=== PATIENT | male | born 1980 | race American Indian/Alaskan Native ===

== ENCOUNTER 2016-08-14 07:34 | Emergency (ER) | payer BC ==
[2016-08-14] MEDS ORDERED: Ondansetron 4 MG/2 ML SDV IVPUSH ONE (07:47)
[2016-08-14] MEDS ORDERED: Sodium Chloride 0.9% 1,000 ML IV ONE (07:47)
[2016-08-14] MEDS ORDERED: Ketorolac 30 MG/ML SDV IVPUSH ONE (07:47)
[2016-08-14] MEDS ORDERED: Tamsulosin 0.4 MG Cap.ER PO ONE (07:48)
--- NOTE | 2016-08-14 07:50 | EDM.PDOC ---
ED HPI GENERAL MEDICAL PROBLEM - General Chief Complaint: Flank Pain Stated Complaint: LOWER BACK PAIN Time Seen by Provider: 08/14/16 07:46 - History of Present Illness INITIAL COMMENTS - FREE TEXT/NARRATIVE: HISTORY AND PHYSICAL: History of present illness: Patient 36-year-old male presents concern of acute left flank pain this spring with associated nausea vomiting started yesterday had a history of urolithiasis prior he denies fever chills trauma or other concern Review of systems: As per history of present illness and below otherwise all systems reviewed and negative. Past medical history: As per history of present illness and as reviewed below otherwise noncontributory. Surgical history: As per history of present illness and as reviewed below otherwise noncontributory. Social history: No reported history of drug or alcohol abuse. Family history: As per history of present illness and as reviewed below otherwise noncontributory. Physical exam: HEENT: Atraumatic, normocephalic, pupils reactive, negative for conjunctival pallor or scleral icterus, mucous membranes moist, throat clear, neck supple, nontender, trachea midline. Lungs: Clear to auscultation, breath sounds equal bilaterally, chest nontender. Heart: S1S2, regular, negative for clicks, rubs, or JVD. Abdomen: Soft, nondistended, nontender. Negative for masses or hepatosplenomegaly. Left-sided costovertebral tenderness. Pelvis: Stable nontender. Genitourinary: Deferred. Rectal: Deferred. Extremities: Atraumatic, negative for cords or calf pain. Neurovascular unremarkable. Neuro: Awake, alert, oriented. Cranial nerves II through XII unremarkable. Cerebellum unremarkable. Motor and sensory unremarkable throughout. Exam nonfocal. Diagnostics: CBC CMP UA urine culture CT abdomen and pelvis Therapeutics: Normal saline 1 L bolus Toradol 30 mg IV Zofran 4 mg IV Flomax 0.4 mg by mouth Impression: #1 acute left flank pain #2 history of urolithiasis Definitive disposition and diagnosis as appropriate pending reevaluation and review of above. left flank Pain Score (Numeric/FACES): 6 - Related Data Allergies Allergy/AdvReac Type Severity Reaction Status Date / Time No Known Allergies Allergy Verified 08/14/16 07:43 Home Meds: Home Meds . [No Known Home Meds] 08/14/16 [History] Past Medical History Psychiatric History: Reports: PTSD - Past Surgical History Musculoskeletal Surgical History: Reports: Other (See Below) Other Musculoskeletal Surgeries/Procedures:: right knee surgery Social & Family History - Family History Family Medical History: Noncontributory - Tobacco Use Smoking Status *Q: Current Every Day Smoker Years of Tobacco use: 2 Packs/Tins Daily: 0.2 - Caffeine Use Caffeine Use: Reports: Coffee, Energy Drinks, Soda, Tea - Recreational Drug Use Recreational Drug Use: No ED ROS GENERAL - Review of Systems Review Of Systems: ROS reveals no pertinent complaints other than HPI. ED EXAM, GENERAL - Physical Exam Exam: See Below (See dictation) Course - Vital Signs Last Recorded V/S: Last Vital Signs Temp 35.7 C 08/14/16 07:43 Pulse 95 08/14/16 07:43 Resp 18 08/14/16 07:43 BP 140/95 H 08/14/16 07:43 Pulse Ox 98 08/14/16 07:43 - Orders/Labs/Meds Orders: Active Orders 24 hr Category Date Time Status Abdomen Pelvis wo Cont [CT] Stat Exams 08/14/16 07:47 Taken CULTURE URINE [RM] Stat Lab 08/14/16 07:45 Received Sodium Chloride 0.9% [Normal Saline] 1,000 ml Med 08/14/16 07:47 Active IV STAT Medication Orders Sodium Chloride (Normal Saline) 1,000 mls @ 999 mls/hr IV STAT ONE Stop: 08/14/16 08:47 Last Admin: 08/14/16 08:28 Dose: 999 mls/hr Labs: Laboratory Tests 08/14/16 08/14/16 08/14/16 Range/Units 07:45 08:06 08:06 WBC 9.10 (4.0-11.0) K/uL RBC 4.93 (4.50-5.90) M/uL Hgb 14.7 (13.0-17.0) g/dL Hct 41.8 (38.0-50.0) % MCV 84.8 (80.0-98.0) fL MCH 29.8 (27.0-32.0) pg MCHC 35.2 (31.0-37.0) g/dL RDW Std Deviation 42.1 (28.0-62.0) fl RDW Coeff of Paul 14 (11.0-15.0) % Plt Count 250 (150-400) K/uL MPV 10.70 (7.40-12.00) fL Neut % (Auto) 55.1 (48.0-80.0) % Lymph % (Auto) 32.2 (16.0-40.0) % Nelson % (Auto) 9.1 (0.0-15.0) % Eos % (Auto) 2.9 (0.0-7.0) % Baso % (Auto) 0.7 (0.0-1.5) % Neut # (Auto) 5.0 (1.4-5.7) K/uL Lymph # (Auto) 2.9 H (0.6-2.4) K/uL Nelson # (Auto) 0.8 (0.0-0.8) K/uL Eos # (Auto) 0.3 (0.0-0.7) K/uL Baso # (Auto) 0.1 (0.0-0.1) K/uL Nucleated RBC % 0.0 /100WBC Nucleated RBCs # 0 K/uL Sodium 141 (136-146) mmol/L Potassium 3.8 (3.5-5.1) mmol/L Chloride 114 H (98-110) mmol/L Carbon Dioxide 18 L (21-31) mmol/L BUN 24 H (6.0-23.0) mg/dL Creatinine 1.2 (0.6-1.5) mg/dL Est Cr Clr Drug Dosing 83.47 mL/min Estimated GFR (MDRD) > 60.0 ml/min Glucose 83 (60-110) mg/dL Calcium 9.3 (8.8-10.8) mg/dL Total Bilirubin 1.4 (0.1-1.5) mg/dL AST 35 (5-40) IU/L ALT 42 (8-54) IU/L Alkaline Phosphatase 127 (40-150) Total Protein 7.4 (6.0-8.0) g/dL Albumin 4.2 (3.5-5.0) g/dL Globulin 3.2 (2.0-3.5) g/dL Albumin/Globulin Ratio 1.3 (1.3-2.8) Urine Color YELLOW Urine Appearance CLEAR Urine pH 6.0 (5.0-8.0) Ur Specific [place] >= 1.030 (1.001-1.035) Urine Protein NEGATIVE (NEGATIVE) mg/dL Urine Glucose (UA) NEGATIVE (NEGATIVE) mg/dL Urine Ketones NEGATIVE (NEGATIVE) mg/dL Urine Occult Blood LARGE H (NEGATIVE) Urine Nitrite NEGATIVE (NEGATIVE) Urine Bilirubin NEGATIVE (NEGATIVE) Urine Urobilinogen 0.2 (<2.0) EU/dL Ur Leukocyte Esterase NEGATIVE (NEGATIVE) Urine RBC 25-30 (0-2/HPF) Urine WBC 0-1 (0-5/HPF) Ur Epithelial Cells RARE (NONE-FEW) Urine Bacteria FEW (NEGATIVE) Meds: Medications Generic Name Dose Route Start Last Admin Trade Name Freq PRN Reason Stop Dose Admin Sodium Chloride 1,000 mls @ 999 mls/hr 08/14/16 07:47 08/14/16 08:28 Normal Saline IV 08/14/16 08:47 999 mls/hr STAT ONE Administration Discontinued Medications Generic Name Dose Route Start Last Admin Trade Name Freq PRN Reason Stop Dose Admin Ketorolac Tromethamine 30 mg 08/14/16 07:47 08/14/16 08:08 Toradol IVPUSH 08/14/16 07:48 30 mg ONETIME ONE Administration Ondansetron HCl 4 mg 08/14/16 07:47 08/14/16 08:08 Zofran IVPUSH 08/14/16 07:48 4 mg ONETIME ONE Administration Tamsulosin HCl 0.4 mg 08/14/16 07:48 08/14/16 08:08 Flomax PO 08/14/16 07:49 0.4 mg ONETIME ONE Administration Departure - Departure Time of Disposition: 08:46 Disposition: Home, Self-Care 01 Condition: Good Clinical Impression: Ureterolithiasis - Discharge Information Forms: ED Department Discharge Additional Instructions: The following information is given to patients seen in the emergency department who are being discharged to home. This information is to outline your options for follow-up care. We provide all patients seen in our emergency department with a follow-up referral. The need for follow-up, as well as the timing and circumstances, are variable depending upon the specifics of your emergency department visit. If you don't have a primary care physician on staff, we will provide you with a referral. We always advise you to contact your personal physician following an emergency department visit to inform them of the circumstance of the visit and for follow-up with them and/or the need for any referrals to a consulting specialist. The emergency department will also refer you to a specialist when appropriate. This referral assures that you have the opportunity for followup care with a specialist. All of these measure are taken in an effort to provide you with optimal care, which includes your followup. Under all circumstances we always encourage you to contact your private physician who remains a resource for coordinating your care. When calling for followup care, please make the office aware that this follow-up is from your recent emergency room visit. If for any reason you are refused follow-up, please contact the [facility] emergency department at and asked to speak to the emergency department charge nurse. [facility] Specialty Care - Urology [address] [place] [id number] Hydrocodone Flomax Zofran as prescribed follow-up urology call to schedule appointment and return as needed as discussed - My Orders Last 24 Hours: My Active Orders 08/14/16 07:45 CULTURE URINE [RM] Stat 08/14/16 07:47 Abdomen Pelvis wo Cont [CT] Stat Sodium Chloride 0.9% [Normal Saline] 1,000 ml IV STAT - Assessment/Plan Last 24 Hours: My Active Orders 08/14/16 07:45 CULTURE URINE [RM] Stat 08/14/16 07:47 Abdomen Pelvis wo Cont [CT] Stat Sodium Chloride 0.9% [Normal Saline] 1,000 ml IV STAT
[2016-08-14 08:38] LABS: CHLORIDE,CL 114 mmol/L (98-110); SODIUM,NA 141 mmol/L (136-146)
[2016-08-14 09:08] VITALS: BP 119/78
--- NOTE | 2016-08-16 12:54 | CT ---
EXAM DATE: 08/14/16 PATIENT'S AGE: 36 Patient: VIJAY QURESHI Facility: [place], [place] Site . Site : 1980 Study: CT Abdomen/Pelvis [id number]/8/2017 8:31:30 AM Ordering Physician: Gunnar Alexander Final Report: INDICATION: LEFT FLANK PAIN, HX OF KIDNEY STONES Indication: Left flank pain. Technique: CT of the abdomen and pelvis without contrast. Coronal/ sagittal reconstructed images. Comparison: None. Findings: Lung bases: There is no pleural or pericardial effusion. The heart size is normal. Lung bases demonstrate no acute airspace disease. There is no basilar pneumothorax. Abdomen/pelvis: No solid hepatic mass. Hepatic morphology is normal. No inflammatory changes of the gallbladder. Spleen size is normal. No pancreatic mass or pancreatic duct dilation. No glandular atrophy. There is no adrenal mass. There is a stone present at the left UVJ, which measures 2-3 millimeters. This is seen on series 201, image 120. There is no significant hydronephrosis or hydroureter. Questionable mild fat stranding adjacent to the left proximal ureter. No additional urolithiasis identified. A 2 millimeter stone in the right kidney on image 49, series 201. Prostate and seminal vesicles are within normal limits. There is no wall thickening within the small bowel or colon. There is no perienteric edema. There is no small bowel or colonic obstruction. Normal caliber appendix. This is seen in image 99. No abdominal aortic aneurysm. No abdominal or pelvic lymphadenopathy by size criteria. The bone windows demonstrate a small sclerotic lesion in the left proximal femur. This measures 6 millimeters in dimension. A benign bone island is favored. Impression: 1. 2-3 millimeter stone at the left UVJ. No significant hydronephrosis or hydroureter. 2. No additional acute findings are demonstrated. Dictated by Todd Duke MD @ 08/14/2016 8:38:02 AM Dictated by: Todd Duke MD @ 08/14/2016 08:38:10 (Electronic Signature) Report Signed by Proxy. ANMOL
== END 2016-08-14 09:17 | disposition home or self-care (01) ==
LOC: MW.ED 07:34
DX: N20.2 Calculus of kidney with calculus of ureter (principal); F17.210 Nicotine dependence, cigarettes, uncomplicated
CPT/HCPCS: 36415; 74176; 80053; 81001; 85025; 87086; 99282; A9270; J1885; J2405; J7040

== ENCOUNTER 2017-04-23 03:48 | Emergency (ER) | payer BC ==
[2017-04-23] MEDS ORDERED: HYDROmorphone 2 MG/ML SDV ONE (03:59)
[2017-04-23] MEDS ORDERED: Sodium Chloride 0.9% 1,000 ML IV ONE (03:59)
[2017-04-23] MEDS ORDERED: Ondansetron 4 MG/2 ML SDV IVPUSH ONE (04:00)
[2017-04-23] MEDS ORDERED: Tamsulosin 0.4 MG Cap.ER PO ONE (04:00)
[2017-04-23] MEDS ORDERED: HYDROmorphone 1 MG/ML Syringe IM ONE (04:01)
[2017-04-23] MEDS ORDERED: Ketorolac 30 MG/ML SDV IVPUSH ONE (04:02)
[2017-04-23] MEDS ORDERED: HYDROmorphone 1 MG/ML Syringe IV STA (04:06)
[2017-04-23] MEDS ORDERED: HYDROmorphone 1 MG/ML Syringe IVPUSH ONE (04:10)
[2017-04-23 04:31] LABS: CHLORIDE,CL 108 mmol/L (98-107); SODIUM,NA 143 mmol/L (136-148)
--- NOTE | 2017-04-23 05:38 | EDM.PDOC ---
ED HPI GENERAL MEDICAL PROBLEM - General Chief Complaint: Flank Pain Stated Complaint: STOMACH PAINS Time Seen by Provider: 04/23/17 05:35 - History of Present Illness INITIAL COMMENTS - FREE TEXT/NARRATIVE: HISTORY AND PHYSICAL: History of present illness: Patient 36-year-old male history urolithiasis who presents with a concern acute right-sided flank pain with associated nausea and vomiting similar to his prior episode of urolithiasis. He denies fever chills trauma or other concern Review of systems: As per history of present illness and below otherwise all systems reviewed and negative. Past medical history: As per history of present illness and as reviewed below otherwise noncontributory. Surgical history: As per history of present illness and as reviewed below otherwise noncontributory. Social history: No reported history of drug or alcohol abuse. Family history: As per history of present illness and as reviewed below otherwise noncontributory. Physical exam: HEENT: Atraumatic, normocephalic, pupils reactive, negative for conjunctival pallor or scleral icterus, mucous membranes moist, throat clear, neck supple, nontender, trachea midline. Lungs: Clear to auscultation, breath sounds equal bilaterally, chest nontender. Heart: S1S2, regular, negative for clicks, rubs, or JVD. Abdomen: Soft, nondistended, nontender. Negative for masses or hepatosplenomegaly. Right-sided costovertebral tenderness. Pelvis: Stable nontender. Genitourinary: Deferred. Rectal: Deferred. Extremities: Atraumatic, negative for cords or calf pain. Neurovascular unremarkable. Neuro: Awake, alert, oriented. Cranial nerves II through XII unremarkable. Cerebellum unremarkable. Motor and sensory unremarkable throughout. Exam nonfocal. Diagnostics: CBC CMP UA urine culture and sensitivity CT abdomen and pelvis Therapeutics: Saline 1 L bolus and Toradol 30 mg IV Dilaudid 1 mg IV Zofran 4 mg IV Flomax 0.4 mg by mouth Impression: #1 acute right flank pain Definitive disposition and diagnosis as appropriate pending reevaluation and review of above. right flank Pain Score (Numeric/FACES): 6 - Related Data Allergies Allergy/AdvReac Type Severity Reaction Status Date / Time No Known Allergies Allergy Verified 04/23/17 04:10 Home Meds: Home Meds . [No Known Home Meds] 07/08/17 [History] Past Medical History HEENT History: Reports: None Cardiovascular History: Reports: None Respiratory History: Reports: None Gastrointestinal History: Reports: None Genitourinary History: Reports: Other (See Below) Other Genitourinary History: Renal Stone Musculoskeletal History: Reports: None Neurological History: Reports: None Psychiatric History: Reports: PTSD Endocrine/Metabolic History: Reports: None Hematologic History: Reports: None Immunologic History: Reports: None Oncologic (Cancer) History: Reports: None Dermatologic History: Reports: None - Infectious Disease History Infectious Disease History: Reports: None - Past Surgical History Musculoskeletal Surgical History: Reports: Other (See Below) Other Musculoskeletal Surgeries/Procedures:: right knee surgery Social & Family History - Family History Family Medical History: Noncontributory - Tobacco Use Smoking Status *Q: Former Smoker Years of Tobacco use: 2 Packs/Tins Daily: 0.2 Used Tobacco, but Quit: No - Caffeine Use Caffeine Use: Reports: Coffee - Recreational Drug Use Recreational Drug Use: No ED ROS GENERAL - Review of Systems Review Of Systems: ROS reveals no pertinent complaints other than HPI. ED EXAM, GENERAL - Physical Exam Exam: See Below (See dictation) Course - Vital Signs Last Recorded V/S: Last Vital Signs Temp 36.6 C 04/23/17 03:55 Pulse 66 04/23/17 05:26 Resp 18 04/23/17 05:26 BP 118/84 04/23/17 05:26 Pulse Ox 98 04/23/17 05:26 - Orders/Labs/Meds Orders: Active Orders 24 hr Category Date Time Status Abdomen Pelvis wo Cont [CT] Stat Exams 04/23/17 04:08 Taken CULTURE URINE [RM] Stat Lab 04/23/17 05:10 Received Labs: Laboratory Tests 04/23/17 04/23/17 04/23/17 Range/Units 03:50 03:50 05:10 WBC 7.66 (4.0-11.0) K/uL RBC 5.31 (4.50-5.90) M/uL Hgb 15.6 (13.0-17.0) g/dL Hct 43.4 (38.0-50.0) % MCV 81.7 (80.0-98.0) fL MCH 29.4 (27.0-32.0) pg MCHC 35.9 (31.0-37.0) g/dL RDW Std Deviation 38.7 (28.0-62.0) fl RDW Coeff of Paul 13 (11.0-15.0) % Plt Count 249 (150-400) K/uL MPV 10.70 (7.40-12.00) fL Neut % (Auto) 35.9 L (48.0-80.0) % Lymph % (Auto) 50.3 H (16.0-40.0) % [place] % (Auto) 8.0 (0.0-15.0) % Eos % (Auto) 5.4 (0.0-7.0) % Baso % (Auto) 0.4 (0.0-1.5) % Neut # (Auto) 2.8 (1.4-5.7) K/uL Lymph # (Auto) 3.9 H (0.6-2.4) K/uL [place] # (Auto) 0.6 (0.0-0.8) K/uL Eos # (Auto) 0.4 (0.0-0.7) K/uL Baso # (Auto) 0.0 (0.0-0.1) K/uL Nucleated RBC % 0.0 /100WBC Nucleated RBCs # 0 K/uL Sodium 143 (136-148) mmol/L Potassium 3.7 (3.5-5.1) mmol/L Chloride 108 H (98-107) mmol/L Carbon Dioxide 24.4 (21.0-32.0) mmol/L BUN 16 (7.0-18.0) mg/dL Creatinine 1.2 (0.8-1.3) mg/dL Est Cr Clr Drug Dosing 83.47 mL/min Estimated GFR (MDRD) > 60.0 ml/min Glucose 97 (74-106) mg/dL Calcium 9.3 (8.5-10.1) mg/dL Total Bilirubin 1.4 H (0.2-1.0) mg/dL AST 31 (15-37) IU/L ALT 60 (14-63) IU/L Alkaline Phosphatase 101 (46-116) U/L Total Protein 7.4 (6.4-8.2) g/dL Albumin 4.1 (3.4-5.0) g/dL Globulin 3.3 (2.0-3.5) g/dL Albumin/Globulin Ratio 1.2 L (1.3-2.8) Urine Color YELLOW Urine Appearance CLEAR Urine pH 6.5 (5.0-8.0) Ur Specific [place] 1.025 (1.001-1.035) Urine Protein 30 (NEGATIVE) mg/dL Urine Glucose (UA) NEGATIVE (NEGATIVE) mg/dL Urine Ketones TRACE H (NEGATIVE) mg/dL Urine Occult Blood LARGE H (NEGATIVE) Urine Nitrite NEGATIVE (NEGATIVE) Urine Bilirubin SMALL H (NEGATIVE) Urine Urobilinogen 1.0 (<2.0) EU/dL Ur Leukocyte Esterase NEGATIVE (NEGATIVE) Urine RBC 20-25 (0-2/HPF) Urine WBC 0-1 (0-5/HPF) Ur Epithelial Cells RARE (NONE-FEW) Urine Bacteria RARE (NEGATIVE) Meds: Medications Discontinued Medications Generic Name Dose Route Start Last Admin Trade Name Freq PRN Reason Stop Dose Admin Hydromorphone HCl 1 mg 04/23/17 04:01 04/23/17 04:15 Dilaudid IM 04/23/17 04:02 Not Given ONETIME ONE Hydromorphone HCl Confirm 04/23/17 03:59 04/23/17 04:15 Dilaudid Administered 04/23/17 04:00 Not Given Dose 2 mg .ROUTE .STK-MED ONE Hydromorphone HCl 1 mg 04/23/17 04:06 04/23/17 04:04 Dilaudid IV 04/23/17 04:07 1 mg ONETIME STA Administration Hydromorphone HCl 1 mg 04/23/17 04:10 04/23/17 05:35 Dilaudid IVPUSH 04/23/17 04:11 1 mg ONETIME ONE Administration Sodium Chloride 1,000 mls @ 999 mls/hr 04/23/17 03:59 04/23/17 04:00 Normal Saline IV 04/23/17 04:59 999 mls/hr .Bolus ONE Administration Ketorolac Tromethamine 30 mg 04/23/17 04:02 04/23/17 04:07 Toradol IVPUSH 04/23/17 04:03 30 mg ONETIME ONE Administration Ondansetron HCl 4 mg 04/23/17 04:00 04/23/17 04:06 Zofran IVPUSH 04/23/17 04:01 4 mg ONETIME ONE Administration Tamsulosin HCl 0.4 mg 04/23/17 04:00 04/23/17 04:23 Flomax PO 04/23/17 04:01 0.4 mg ONETIME ONE Administration Departure - Departure Time of Disposition: 06:19 Disposition: Home, Self-Care 01 Condition: Good Clinical Impression: Ureteric colic, Urolithiasis - Discharge Information Referrals: PCP,None [Primary Care Provider] - Forms: ED Department Discharge Additional Instructions: The following information is given to patients seen in the emergency department who are being discharged to home. This information is to outline your options for follow-up care. We provide all patients seen in our emergency department with a follow-up referral. The need for follow-up, as well as the timing and circumstances, are variable depending upon the specifics of your emergency department visit. If you don't have a primary care physician on staff, we will provide you with a referral. We always advise you to contact your personal physician following an emergency department visit to inform them of the circumstance of the visit and for follow-up with them and/or the need for any referrals to a consulting specialist. The emergency department will also refer you to a specialist when appropriate. This referral assures that you have the opportunity for followup care with a specialist. All of these measure are taken in an effort to provide you with optimal care, which includes your followup. Under all circumstances we always encourage you to contact your private physician who remains a resource for coordinating your care. When calling for followup care, please make the office aware that this follow-up is from your recent emergency room visit. If for any reason you are refused follow-up, please contact the [facility] emergency department at and asked to speak to the emergency department charge nurse. [facility] Specialty Care - Urology [address] [place] [phone] Flomax hydrocodone Zofran as prescribed push fluids call to schedule appointment with urology as discussed return as needed as discussed - My Orders Last 24 Hours: My Active Orders 04/23/17 04:08 Abdomen Pelvis wo Cont [CT] Stat 04/23/17 05:10 CULTURE URINE [RM] Stat - Assessment/Plan Last 24 Hours: My Active Orders 04/23/17 04:08 Abdomen Pelvis wo Cont [CT] Stat 04/23/17 05:10 CULTURE URINE [RM] Stat
[2017-04-23 06:47] VITALS: BP 132/98
--- NOTE | 2017-04-25 15:19 | CT ---
EXAM DATE: 04/23/17 PATIENT'S AGE: 36 Patient: VIJAY QURESHI Facility: [place], [place] Site . Site : 1980 Study: CT Abdomen/Pelvis [id number]/17/2018 4:47:17 AM Ordering Physician: Doctor Olivares Final Report: INDICATION: Right flank pain. History of nephrolithiasis. TECHNIQUE: CT abdomen and pelvis without contrast. COMPARISON: [address] FINDINGS: Lower chest: Unremarkable. Liver: Unremarkable. Spleen: Unremarkable. Pancreas: Unremarkable. Gallbladder and bile ducts: Unremarkable. Kidneys: Mild hydronephrosis and hydroureter on the right extends to a 2.4 mm right ureteral vesicular junction calculus. 3 mm nonobstructing calculus midpole right kidney. Normal left kidney, collecting system and ureter. Decompressed urinary bladder. Adrenal glands: Unremarkable. GI tract: Moderate stool in the slightly redundant colon. Normal small bowel. Appendix is normal. Vascular structures: Unremarkable. Lymph nodes: Unremarkable. Miscellaneous: Unremarkable. No free air or significant free fluid. Pelvic Organs: Unremarkable. Bones: Unremarkable for age. IMPRESSION: Right ureterovesicular junction 2.4 mm stone causing mild hydronephrosis and hydroureter. 3 mm nonobstructing calculus midpole right kidney. Please note that all CT scans at this facility use dose modulation, iterative reconstruction, and/or weight-based dosing when appropriate to reduce radiation dose to as low as reasonably achievable. Dictated by Favian Philippe MD @ Apr 23 2017 5:54AM (Electronic Signature) Report Signed by Proxy. [id number]
== END 2017-04-23 06:45 | disposition home or self-care (01) ==
LOC: MW.ED 03:48
DX: N13.2 Hydronephrosis with renal and ureteral calculous obstruction (principal); F43.10 Post-traumatic stress disorder, unspecified; Z87.891 Personal history of nicotine dependence
CPT/HCPCS: 36415; 74176; 80053; 81001; 85025; 87086; 96361; 96374; 96375; 96376; 99284; A9270; J1170; J1885; J2405; J7040; 99283

== ENCOUNTER 2017-08-10 20:14 | Emergency (ER) | payer BC ==
--- NOTE | 2017-08-10 20:18 | EDM.PDOC ---
ED HPI GENERAL MEDICAL PROBLEM - General Chief Complaint: Upper Extremity Injury/Pain Stated Complaint: PAIN/SMASHED RT ARM Time Seen by Provider: 08/10/17 20:17 Source of Information: Reports: Patient History Limitations: Reports: No Limitations - History of Present Illness INITIAL COMMENTS - FREE TEXT/NARRATIVE: HISTORY AND PHYSICAL: History of present illness: 37-year-old male presenting to emergency department after trauma to his right hand. Patient states that around 8 AM this morning he was installing a new bumper on his truck when the bumper fell crushing his right hand under it. The bumper weighed about approximately 280 pounds. His hand was pinned under the bumper for almost 30-45 minutes. Was able to get his hand out by himself and there was a laceration to his proximal right fifth phalanx near the knuckle. Patient states he had immediate pain and has had some decrease in sensation to that fifth digit. Decreased range of motion secondary to pain. Patient states that he had a tetanus update approximate year and a half ago when he cut himself with a knife accidentally. On examination patient is acutely tender along the third through fifth carpal bones of the right hand. There is a 1.5 cm laceration above the right fifth carpal near the knuckle. Neurovascular intact however there is some decrease in sensation on the palmar side of the fifth metacarpal. Review of systems: As per history of present illness and below otherwise all systems reviewed and negative. Past medical history: As per history of present illness and as reviewed below otherwise noncontributory. Surgical history: As per history of present illness and as reviewed below otherwise noncontributory. Social history: No reported history of drug or alcohol abuse. Family history: As per history of present illness and as reviewed below otherwise noncontributory. Physical exam: HEENT: Atraumatic, normocephalic, pupils reactive, negative for conjunctival pallor or scleral icterus, mucous membranes moist, throat clear, neck supple, nontender, trachea midline. Lungs: Clear to auscultation, breath sounds equal bilaterally, chest nontender. Heart: S1S2, regular, negative for clicks, rubs, or JVD. Abdomen: Soft, nondistended, nontender. Negative for masses or hepatosplenomegaly. Negative for costovertebral tenderness. Pelvis: Stable nontender. Genitourinary: Deferred. Rectal: Deferred. Extremities: please see above H&P, negative for cords or calf pain. Neurovascular unremarkable. Neuro: Awake, alert, oriented. Cranial nerves II through XII unremarkable. Cerebellum unremarkable. Motor and sensory unremarkable throughout. Exam nonfocal. Diagnostics: Right hand x-ray, right forearm x-ray Therapeutics: Toradol 60 mg IM 1, Impression: Severe contusion right wrist and hand 1.5 cm laceration hand Plan: Using 1% lidocaine analgesia was accomplished and under normal sterile conditions 3 interrupted sutures were placed with nonabsorbable Ethilon 5.0. Patient tolerated procedure well. He was discharged with tramadol as well as a prescription for bactrim antibiotics. He was instructed to return emergency room and getting new or worsening symptoms and follow up in 7-10 days for suture removal. I also advised him to help with her primary care provider and listed numbers that he can call. He should establish care and they can remove the sutures as well. Did let them know that we do remove the sutures for no Def. Charge in emergency room.initive disposition and diagnosis as appropriate pending reevaluation and review of above. right hand Pain Score (Numeric/FACES): 6 - Related Data Allergies Allergy/AdvReac Type Severity Reaction Status Date / Time No Known Allergies Allergy Verified 08/10/17 20:22 Home Meds: Home Meds . [No Known Home Meds] 08/14/16 [History] Past Medical History HEENT History: Reports: None Cardiovascular History: Reports: None Respiratory History: Reports: None Gastrointestinal History: Reports: None Genitourinary History: Reports: Other (See Below) Other Genitourinary History: Renal Stone Musculoskeletal History: Reports: None Neurological History: Reports: None Psychiatric History: Reports: PTSD Endocrine/Metabolic History: Reports: None Hematologic History: Reports: None Immunologic History: Reports: None Oncologic (Cancer) History: Reports: None Dermatologic History: Reports: None - Infectious Disease History Infectious Disease History: Reports: None - Past Surgical History Musculoskeletal Surgical History: Reports: Other (See Below) Other Musculoskeletal Surgeries/Procedures:: right knee surgery Social & Family History - Family History Family Medical History: Noncontributory - Caffeine Use Caffeine Use: Reports: Coffee Review of Systems - Review of Systems Review Of Systems: ROS reveals no pertinent complaints other than HPI. ED EXAM, GENERAL - Physical Exam Exam: See Below Course - Vital Signs Last Recorded V/S: Last Vital Signs Temp 97.8 F 08/10/17 20:22 Pulse 106 H 08/10/17 20:22 Resp 18 08/10/17 20:22 BP 159/85 H 08/10/17 20:22 Pulse Ox 94 L 08/10/17 20:22 - Orders/Labs/Meds Orders: Active Orders 24 hr Category Date Time Status Forearm 2V Rt [CR] Stat Exams 08/10/17 20:31 Taken Hand 2V Rt [CR] Stat Exams 08/10/17 20:27 Taken Meds: Medications Discontinued Medications Generic Name Dose Route Start Last Admin Trade Name Freq PRN Reason Stop Dose Admin Hydrocodone Bitart/Acetaminophen 1 tab 08/10/17 21:59 08/10/17 22:30 [place] 325-10 Mg PO 08/10/17 22:00 1 tab ONETIME ONE Administration Ketorolac Tromethamine 60 mg 08/10/17 20:26 08/10/17 20:32 Toradol IM 08/10/17 20:27 60 mg ONETIME ONE Administration Lidocaine HCl 5 ml 08/10/17 21:19 Xylocaine-Mpf 1% INJECT 08/10/17 21:20 ONETIME ONE Departure - Departure Time of Disposition: 22:48 Disposition: Home, Self-Care 01 Condition: Good Clinical Impression: Contusion of right hand including fingers Qualifiers: Encounter type: initial encounter Qualified Code(s): S60.221A - Contusion of right hand, initial encounter; S60.00XA - Contusion of unspecified finger without damage to nail, initial encounter Laceration of right hand Qualifiers: Encounter type: initial encounter Foreign body presence: without foreign body Qualified Code(s): S61.411A - Laceration without foreign body of right hand, initial encounter - Discharge Information Referrals: PCP,None [Primary Care Provider] - Forms: ED Department Discharge Additional Instructions: My general discharge The following information is given to patients seen in the emergency department who are being discharged to home. This information is to outline your options for follow-up care. We provide all patients seen in our emergency department with a follow-up referral. The need for follow-up, as well as the timing and circumstances, are variable depending upon the specifics of your emergency department visit. If you don't have a primary care physician on staff, we will provide you with a referral. We always advise you to contact your personal physician following an emergency department visit to inform them of the circumstance of the visit and for follow-up with them and/or the need for any referrals to a consulting specialist. The emergency department will also refer you to a specialist when appropriate. This referral assures that you have the opportunity for follow-up care with a specialist. All of these measure are taken in an effort to provide you with optimal care, which includes your follow-up. Under all circumstances we always encourage you to contact your private physician who remains a resource for coordinating your care. When calling for follow-up care, please make the office aware that this follow-up is from your recent emergency room visit. If for any reason you are refused follow-up, please contact the [facility] Emergency Department at and asked to speak to the emergency department charge nurse. [facility] [address] [place] [id number] [place] [address] Take antibiotics as prescribed. Watch for signs of infection including but not limited to increased swelling, redness, drainage, or pain as we discussed. Follow-up with primary care provider with one of the numbers listed above. Return for suture removal in 7-10 days. Return to department if any new or worsening symptoms. - My Orders Last 24 Hours: My Active Orders 08/10/17 20:27 Hand 2V Rt [CR] Stat 08/10/17 20:31 Forearm 2V Rt [CR] Stat - Assessment/Plan Last 24 Hours: My Active Orders 08/10/17 20:27 Hand 2V Rt [CR] Stat 08/10/17 20:31 Forearm 2V Rt [CR] Stat
[2017-08-10 20:24] VITALS: BP 159/85
[2017-08-10] MEDS ORDERED: Ketorolac 60 MG/2 ML SDV IM ONE (20:26)
[2017-08-10] MEDS ORDERED: Acetaminophen/HYDROcodone 325-10 MG Tab PO ONE (21:59)
--- NOTE | 2017-08-11 10:43 | CR ---
EXAM DATE: 08/10/17 PATIENT'S AGE: 37 Patient: VIJAY QURESHI Facility: [place], [place] Site . Site : 1980 Study: XRay Extremity Right forearm [id number]/4/2018 8:57:41 PM Ordering Physician: Mahendra Saunders Final Report: INDICATION: crush injury 2 views of the right forearm Findings: There is no acute fracture, malalignment or degenerative change. Soft tissues are radiographically unremarkable. Impression: Unremarkable radiographs of the right forearm. Dictated by: Favian Philippe MD @ 08/10/2017 21:04:08 (Electronic Signature) Report Signed by Proxy. ANMOL
--- NOTE | 2017-08-11 10:43 | CR ---
EXAM DATE: 08/10/17 PATIENT'S AGE: 37 Patient: VIJAY QURESHI Facility: [place], [place] Site . Site : 1980 Study: XRay Extremity Right hand [id number]/4/2018 8:57:17 PM Ordering Physician: Mahendra Saunders Final Report: INDICATION: Crush injury. TECHNIQUE: 2 views right hand. COMPARISON: None FINDINGS: Bones: No acute fracture. No dislocation. No suspicious bone lesion. Joint spaces: Unremarkable. Soft tissues: Unremarkable. IMPRESSION: No acute osseous abnormality. Dictated by Daniel Barker MD @ 08/10/2017 9:04:32 PM Dictated by: Daniel Barker MD @ 08/10/2017 21:04:38 (Electronic Signature) Report Signed by Proxy. [facility]
== END 2017-08-10 23:01 | disposition home or self-care (01) ==
LOC: MW.ED 20:14
DX: S61.411A Laceration without foreign body of right hand, initial encounter (principal); S60.041A Contusion of right ring finger without damage to nail, initial encounter; S60.031A Contusion of right middle finger without damage to nail, initial encounter; S60.051A Contusion of right little finger without damage to nail, initial encounter; W20.8XXA Other cause of strike by thrown, projected or falling object, initial encounter
CPT/HCPCS: 12001; 73090; 73120; 96372; 99283; A9270; J1885